=== PATIENT | female | born 2000 | race Caucasian/White ===

== ENCOUNTER 2021-07-26 08:20 | Inpatient (IN) | payer SELFPAY, OTHER ==
[2021-07-26] VITALS (51 sets, daily range): BP systolic 95–135; BP diastolic 52–86; PULSE 77–171; RESP 16; TEMP 36.3–37.3; O2SAT 84–100; BMI 28.0
[2021-07-26 07:03] LABS: ROM Internal Control Test YES-OK TO RESULT pt. (Internal QC); ROM Patient Test Negative (Negative)
--- NOTE | 2021-07-26 08:45 | PCM.HP.OB ---
HPI - General General Date of Admission: 07/26/21 HPI Narrative HUMBERTO GROSSMAN, is a 21 F at 40.3 weeks gestation that presents in spontaneous labor. She started having contractions yesterday. Denies any loss of fluid or vaginal bleeding. Positive movement. Pateint desires TOLAC. Previous delivery by C/S for breech presentation. Maternal Data Information EVEGNY Calculator Estimated Delivery Date Method Current WG Current Estimate 07/23/21 Manual 40w 3d PFSH PFSH Home Medications [id number] [] 1 tab PO DAILY 07/26/21 [History Last Taken 07/25/21 12:00] Allergy/AdvReac Type Severity Reaction Status Date / Time No Known Allergies Allergy Verified 07/26/21 06:17 Surgical History (Updated 07/26/21 @ 08:06 by Shivani Ortega) Previous section Social History Smoking Status: Never smoker History Elective abortions Hx Para 1 Spontaneous abortions Hx # Term Pregnancies Ectopic pregnancies Hx # Pregnancies Multiple births # of living children NST FHR Rate Baby A Baseline: 140 Variability:: Moderate Accelerations:: 15 x 15 Decelerations:: None NST Reactive:: Yes FHR Category:: Category I Uterine Activity:: irregular ROS Eyes Eyes: Denies blurry vision, change in vision or spots in vision ENT HEENT: Denies dizziness or headache(s) Cardiovascular Cardiovascular: Denies abdominal pain, chest pain or dyspnea Respiratory/Chest Respiratory/Chest: Denies cough, dyspnea, shortness of breath at rest or shortness of breath with exertion Gastrointestinal Gastrointestinal: Denies abdominal pain, diarrhea or vomiting Genitourinary Genitourinary: Denies change in urinary stream, difficulty urinating or dysuria Musculoskeletal Musculoskeletal: Reports none Integumentary Integumentary: Denies rash Neurologic Neurologic: Denies dizziness, headache(s), memory loss or weakness Psychiatric Psychiatric: Reports none Vital Signs Vital Signs Vital Signs: 07/26/21 06:22 07/26/21 06:24 07/26/21 07:34 Temperature 97.6 F L Temperature Source Temporal Pulse Rate 83 91 83 Blood Pressure 115/67 113/71 BP Systolic 115 113 BP Diastolic 67 71 Pulse Ox 97 Weight Weight: 168 lb 9.6 oz Body Mass Index (BMI) 28.0 Physical Exam Const alert and no apparent distress General Appearance: cooperative and comfortable Exam Limitations: no limitations HEENT normocephalic Eyes General Eye: normal appearance of both eyes Neck full ROM General: normal visual inspection Chest Chest: symmetrical chest wall rise Resp normal respiratory effort and normal air movement Effort and Inspection: symmetric chest movement Auscultation: clear to auscultation bilaterally Cardio regular rate and regular rhythm GI normal to inspection, nondistended, normoactive bowel sounds Manual OB Exam: dilated Back/Spine normal ROM Extremity full ROM and no calf tenderness General Extremity: normal exam except as noted Skin no rashes or lesions noted Neuro CN's II-XII intact bilaterally Psych mental status grossly normal Labs Labs Labs: Blood Type A POSITIVE Antibody Screen NEGATIVE Hct 37.3 % (37-47) Hgb 12.8 g/dL (12.0-15.0) Rubella - immune HB- neg HC- neg HIV- NR RPR- NR GBS- negative Assessment & Plan (1) Encounter for trial of labor: (2) Spontaneous onset of labor: (3) Short interval between pregnancies affecting in first trimester, antepartum: PLAN: CE changed since arrival to unit-4.5/70/-1 Admit to labor and delivery Routine labs Start IV fluids and titrate per orders Epidural when indicated GBS negative CAT. [address] Granados notified of admission, TOLAC and Dr. Hartman as back up physician
[2021-07-26] MEDS: Lactated Ringers 1,000 ML 50 ML IV (08:50)
[2021-07-26 09:09] LABS: Absolute Lymphocyte Count 1.65 X10^3/uL (0.83-4.51); Absolute Neutrophil Count 7.1 X10^3/uL (2.0-7.7); Basophil# 0.03 X10^3/uL; Basophil% 0.3 % (0-1); Eosinophil# 0.06 X10^3/uL; Eosinophils% 0.6 % (0-5); Hematocrit 37.3 % (37-47); Hemoglobin 12.8 g/dL (12.0-15.0); Lymphocyte # 1.65 X10^3/ul (0.83-4.51); Lymphocyte % 17.6 % (19-41); Mean Corp Hgb Conc 34.3 g/dL (32-36); Mean Corpuscular Volume 87.6 fL (81-99); Mean Platelet Vol. 10.8 fl (6.2-12.0); Monocyte# 0.51 X10^3/uL; Monocyte% 5.4 % (0-10); NRBC Flagged by Analyzer 0 % (0-5); Neutrophil # 7.08 X10^3/uL (2.7-7.7); Neutrophil % 75.4 % (47-70); Platelet Count 149 K/mm3 (150-450); RBC Distribution Width CV 13.2 % (11.6-14.6); RBC Distribution Width SD 42.1 fl (35.1-43.9); Red Blood Count 4.26 M/mm3 (4.2-5.4); White Blood Count 9.4 K/mm3 (4.4-11.0)
--- NOTE | 2021-07-26 09:10 | PN_ITS ---
Progress Note [facility] 0906 clear/bloody /-1
--- NOTE | 2021-07-26 09:10 | PCM.PN.BLA ---
Progress Note [facility] 0906 clear/bloody /-1
[2021-07-26] MEDS: Lactated Ringers 500 ML 999 ML IV ×2 (10:01→12:25)
[2021-07-26] MEDS: fentaNYL-bupivacaine (epidural) 100 ML BAG EPIDURAL (11:12)
[2021-07-26] MEDS: Oxytocin 30 units/NS 500 ml 30 UNITS/500 ML IV.SOLN 334 UNITS IV (13:32)
--- NOTE | 2021-07-26 14:04 | EX.PCM.OBRPT ---
Assessment & Plan (1) Vaginal after (): (2) Perineal laceration, second degree, delivered: (3) Tear of periurethral tissue with delivery: Maternal Data Information EVGENY Calculator Estimated Delivery Date Method Current WG Current Estimate 07/23/21 Manual 40w 3d Vaginal Delivery Maternal Presentation Maternal Presentation: Patient is a at 40.3 that presented in spontaneous labor. TOLAC Operative Information Date of Procedure: 07/26/21 Pre-Operative Diagnosis: Term gestation, TOLAC, Spontaneous labor Post-Operative Diagnosis: , live female infant Surgery / Procedure Performed: Type of Anesthesia: Epidural Drain: Moseley to straight drain Estimated Blood Loss: 350 Time of Delivery: 13:27 Findings Description of Procedure: Called to patient's room due to being 10 cm and +2 station. Patient pushing well with contractions. Delivery of infant head with minimal effort followed immediately by 's anterior shoulder and remainder of body. Vigorous female placed on maternal abdomen and attended to by nursing staff. Pitocin IV started for active management of the third stage of labor. 3 vessel cord clamped and cut by FOB after 3 minutes. Infant placed skin to skin with patient. Placenta delivered spontaneously and intact. Second degree perineal laceration and periurethral laceration repaired in usual fashion using 3-0 Vicryl Rapid. Hemostasis obtained. Fundus firm 2 below U. APGARS 9/9, EBL- [address] Granados notified of delivery. Presentation: Vertex and ZITA Amniotic Membrane Rupture Type: Artificial Amniotic Fluid Description: Clear Placental Delivery Description: Spontaneous Placenta Disposition: [facility] Cord Vessel Description: 3 Vessels Cord Entanglement: None A Gender: Female (1 minute): 9 (5 minute): 9 Delayed Cord Clamping: Yes Post Vaginal Delivery Medications Given After Delivery: IV Pitocin Episiotomy Description: None Laceration: Periurethral Extnsion/lac and 2nd degree Complication Complications: None
--- NOTE | 2021-07-26 17:41 | NURSING ---
1730 pt oob gait steady; pt moved to room 7; pt void 300 cc urine pericare demonstrated
--- NOTE | 2021-07-26 18:10 | NURSING ---
maternal pulse remains tachy at 115- temp 97.7- lochia small- pt denies any symptoms; cplotts made aware of tachycardia will continue to monitor
[2021-07-26] MEDS: Acetaminophen 500 MG Tablet 1000 MG PO (20:02)
[2021-07-27] MEDS: Ibuprofen 600 MG Tablet PO ×3 (00:24→14:08)
[2021-07-27 01:15] VITALS: BP 107/63; PULSE 80; RESP 18
[2021-07-27 04:14] VITALS: BP 104/72; PULSE 94; RESP 18
[2021-07-27] MEDS: Acetaminophen 500 MG Tablet 1000 MG PO ×2 (04:17→10:41)
--- NOTE | 2021-07-27 07:45 | PCM.PN.BLA ---
Progress Note Patient seen at bedside. Feeling good. with minimal support. Denies pain. Ambulating and voiding without difficulty. Lochia minimal. Denies any headache, sob, cp or dizziness. Desires discharge home today. Physical Exam Const alert and no apparent distress General Appearance: cooperative and comfortable Exam Limitations: no limitations HEENT normocephalic Eyes General Eye: normal appearance of both eyes Neck full ROM General: normal visual inspection Chest Chest: symmetrical chest wall rise Resp normal respiratory effort and normal air movement Effort and Inspection: symmetric chest movement Auscultation: clear to auscultation bilaterally Cardio regular rate and regular rhythm GI normal to inspection, nondistended, normoactive bowel sounds Back/Spine normal ROM Extremity full ROM and no calf tenderness General Extremity: normal exam except as noted Skin no rashes or lesions noted Neuro CN's II-XII intact bilaterally Psych mental status grossly normal Assessment & Plan Assessment/Plan (1) Vaginal after (): (2) Perineal laceration, second degree, delivered: (3) Tear of periurethral tissue with delivery: PLAN: PPD 1 Routine care Pain control Breast feeding support D/C home with follow up in office
--- NOTE | 2021-07-27 07:50 | PCM.DC ---
Discharge Instructions Diet Discharge Diet: No restrictions Activity May resume sexual activity in: 6-8 weeks Weight Bearing Status: Weight bearing as tolerated Dressing / Incision Call your doctor if you observe: Fever of 101 or Higher, Inability to urinate, Using more than 1 pad per hour, Shortness of breath, Chest pain, Calf discomfort and Uncontrolled pain Follow Up Care Please Follow Up With: Carmelita Morales CNM When: 2 weeks virtual visit/ 6 weeks in office Test Results: Test results from this visit will be discussed in further detail at your follow-up appointment, if applicable. Discharge Plan Admission Admit Date/Time: 07/26/21 08:20 Primary Reason for Your Visit: Labor and delivery Attending Provider: Carmelita Morales Primary Care Provider: Care Physician,No Primary Discharge Orders/Prescriptions Prescriptions: No Action 1 mg Tablet 1 tab PO DAILY RF: 0 Referrals / Follow Up: Care Physician,No Primary [Primary Care Provider] - Disposition Disposition (needs filled in before D/C Order can be placed): Home, Self Care
[2021-07-27 08:11] VITALS: BP 107/70; PULSE 83; RESP 18; TEMP 36.6
[2021-07-27 12:22] VITALS: BP 103/62; PULSE 79; RESP 18; TEMP 36.3
[2021-07-27] MEDS: Senna/Docusate Sodium 1 Tablet PO (14:08)
== END 2021-07-27 15:50 | disposition home or self-care (01) | DRG 807 ==
LOC: WPOUT 08:24 → WP 08:25
PROVIDERS: Obstetrics & Gynecology; Admitting Provider Advanced Practice Midwife; Referring Provider Advanced Practice Midwife; Visit Provider Advanced Practice Midwife
DX: O34.219 Maternal care for unspecified type scar from previous cesarean delivery (principal); Z37.0 Single live birth; O70.1 Second degree perineal laceration during delivery; O71.82 Other specified trauma to perineum and vulva; Z3A.40 40 weeks gestation of pregnancy; Z87.59 Personal history of other complications of pregnancy, childbirth and the puerperium
CPT/HCPCS: 59025; 59050; 76815; 84112; 85025; 86850; 86900; 86901; 87426; 99218; J7120; G0378